=== PATIENT | female | born 1970 | race Caucasian/White ===

== ENCOUNTER 2020-09-06 12:41 | Outpatient (CLI) | payer OTHER | END 2020-09-06 23:59 | disposition home or self-care (01) | LOC: CFH 12:41 → MERGE 13:00 → CFH 23:59 | PROVIDERS: ATTEND General Practice | DX: N63.12 Unspecified lump in the right breast, upper inner quadrant (principal); N60.01 Solitary cyst of right breast; R92.0 Mammographic microcalcification found on diagnostic imaging of breast | CPT/HCPCS: 76642; 77061; 77065; G0279 ==